=== PATIENT | male | born 1975 | race Caucasian/White ===

== ENCOUNTER 2016-09-28 06:43 | Emergency (ER) | payer MEDICAID, OTHER ==
[~2016-09-28 06:43] MED LIST: IBUP800T23 PO; ROBA750T3 PO
[2016-09-28 06:45] VITALS: BP 168/116; PULSE 57; RESP 16; TEMP 98.1; O2SAT 99
--- NOTE | 2016-09-28 06:59 | PD ---
HPI . muscle tightness and back pain since Monday Chief Complaint: Back/ Neck Pain or Injury Time Seen by Provider: 06:59 Travel History International Travel<30 days: No Contact w/Intl Traveler<30days: No Traveled to known affect area: No History of Present Illness HPI 41-year-old male with no significant past medical history other than tobaccoism here with complaints of muscle strain and back pain. Patient picked up a tree limb in his yard on Monday evening and says he felt a pull muscles. He's been trying to self treat at home with ibuprofen and Aleve, but he is not getting much relief. At rest his pain is rated 5/10, with movement 8/10. He denies any bowel or bladder dysfunction. No saddle anesthesia. He denies numbness or tingling. 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 Reported Meds & Prescriptions Reported Meds & Active Scripts Active Ibuprofen 800 Mg Tab 800 Mg PO TID Flexeril (Cyclobenzaprine HCl) 5 Mg Tab 5 Mg PO TID Review of Systems General / Constitutional: No: Fever Eyes: No: Visual changes HENT: No: Headaches Cardiovascular: No: Chest Pain or Discomfort Respiratory: No: Shortness of Breath Gastrointestinal: No: Abdominal Pain Genitourinary: No: Dysuria Musculoskeletal: Positive: Pain (back pain) Skin: No Rash Neurologic: No: Weakness Psychiatric: No: Depression Endocrine: No: Polydipsia Hematologic/Lymphatic: No: Easy Bruising Physical Exam Narrative GENERAL: AAO x 3, no acute distress, Well-nourished, well-developed patient. SKIN: Warm and dry. No visible rashes or bruising. HEAD: Normocephalic and atraumatic. EYES: No scleral icterus. No injection or drainage. ENT: No nasal drainage noted. Mucous membranes pink. Airway patent. NECK: Supple, trachea midline. No JVD. CARDIOVASCULAR: Regular rate and rhythm without murmurs, gallops, or rubs. RESPIRATORY: Breath sounds equal bilaterally. No accessory muscle use. No rhonchi or rales. GASTROINTESTINAL: Visual inspection normal EXTREMITIES: No cyanosis or edema. BACK: Nontender without obvious deformity. No CVA tenderness. Bilateral paraspinal tenderness in the lumbar area. Normal gait. PSYCH: AAO x 3, normal affect. Data Data Last Documented VS Vital Signs Date Time Temp Pulse Resp B/P Pulse Ox O2 Delivery O2 Flow Rate FiO2 09/28/16 06:45 98.1 57 16 168/116 99 MDM Medical Decision Making Medical Screen Exam Complete: Yes Emergency Medical Condition: Yes Medical Record Reviewed: Yes Differential Diagnosis lumbago, muscle strain, less likely spinal fracture Narrative Course 41-year-old male here with acute back pain after picking up a tree limb on Monday. Patient was seen and examined. He appears to have muscle strain in the paraspinal area of the lumbar spine. I discussed the treatment plan including use of muscle relaxers and anti- inflammatory. We discussed the side effects of muscle relaxers Patient was in agreement. bp recheck 141/87 Patient verbalized understanding of instructions, questions were answered, and thanked me for their care. I advised them if their condition worsens, please return to the nearest emergency room for further care. Diagnosis Primary Impression: Muscle strain Additional Impression: Lumbago Qualified Code: M54.5 - Acute midline low back pain without sciatica Patient Instructions: General Instructions Additional Instructions: Please return to emergency department if your symptoms return or worsen. Follow up with your primary care provider. Take medications as prescribed. Muscle relaxers can cause drowsiness. Do not drive, swim or operate heavy machinery while using these medications. Med/Other Pt SpecificInfo: Prescription(s) given Scripts Ibuprofen 800 Mg [id number] Mg PO TID #21 TAB Prov:Adeola Martinez MD 09/28/16 Cyclobenzaprine (Flexeril)5 Mg Tab5 Mg PO TID #21 TAB Prov:Adeola Martinez MD 09/28/16 Disposition: 01 DISCHARGE HOME Condition: Stable Miri Arechiga September 28, 2016 06:59
[2016-09-28] MEDS ORDERED: IBUP800T23 PO (07:03)
[2016-09-28] MEDS ORDERED: CYCL5TAB PO (07:03)
== END 2016-09-28 07:17 | disposition home or self-care (01) ==
LOC: NEPK 06:43
DX: M54.5 Low back pain (principal); S39.012A Strain of muscle, fascia and tendon of lower back, initial encounter; Z72.0 Tobacco use; X50.0XXA Overexertion from strenuous movement or load, initial encounter; Y93.H9 Activity, other involving exterior property and land maintenance, building and construction; Y92.017 Garden or yard in single-family (private) house as the place of occurrence of the external cause; Y99.8 Other external cause status
CPT/HCPCS: 99283

== ENCOUNTER 2016-11-26 16:15 | Emergency (ER) | payer MEDICAID ==
[~2016-11-26] VITALS: Ht 185.4 cm; Wt 79.0 kg
[~2016-11-26 16:15] MED LIST changes: +CYCL5TAB PO; -ROBA750T3 PO
[2016-11-26 16:16] VITALS: BP 162/95; PULSE 63; RESP 14; TEMP 98.2; O2SAT 99
--- NOTE | 2016-11-26 16:21 | PD ---
HPI . right hand pain x 2 weeks Chief Complaint: Pain: Acute or Chronic Time Seen by Provider: 16:21 Travel History International Travel<30 days: No Contact w/Intl Traveler<30days: No Traveled to known affect area: No History of Present Illness HPI 41-year-old male here with complaints of right wrist pain intermittently for the past 2 weeks. Patient says he started new job and has been using his hand a lot and every time he makes a twisting motion, he is experiencing right wrist and hand pain. The pain radiates into his right forearm. He rates the pain as 5/10. He denies any recent injury. He is requesting ibuprofen that he received during his last visit. He says that he's been taking 200 mg of ibuprofen 3 times a day, without much relief. 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 Reported Meds & Prescriptions Reported Meds & Active Scripts Active Ibuprofen 800 Mg Tab 800 Mg PO TID Review of Systems General / Constitutional: No: Fever Eyes: No: Visual changes HENT: No: Headaches Cardiovascular: No: Chest Pain or Discomfort Respiratory: No: Shortness of Breath Gastrointestinal: No: Abdominal Pain Genitourinary: No: Dysuria Musculoskeletal: Positive: Pain (right hand/wrist pain ) Skin: No Rash Neurologic: No: Weakness Psychiatric: No: Depression Endocrine: No: Polydipsia Hematologic/Lymphatic: No: Easy Bruising Physical Exam Narrative GENERAL: AAO x 3, no acute distress, Well-nourished, well-developed patient. SKIN: Warm and dry. No visible rashes or bruising. HEAD: Normocephalic and atraumatic. EYES: No scleral icterus. No injection or drainage. ENT: No nasal drainage noted. Mucous membranes pink. Airway patent. NECK: Supple, trachea midline. No JVD. CARDIOVASCULAR: Regular rate and rhythm without murmurs, gallops, or rubs. RESPIRATORY: Breath sounds equal bilaterally. No accessory muscle use. No rhonchi or rales. GASTROINTESTINAL: Abdomen soft, non-tender, nondistended. EXTREMITIES: No cyanosis or edema. right hand: no tenderness to distal radius and ulna, distal and ulnar pulse normal, digits move normally BACK: No obvious deformity. 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 Data Data Last Documented VS Vital Signs Date Time Temp Pulse Resp B/P Pulse Ox O2 Delivery O2 Flow Rate FiO2 11/26/16 16:16 98.2 63 14 162/95 99 Orders Bubba Bandage (11/26/16 16:26) MDM Medical Decision Making Medical Screen Exam Complete: Yes Emergency Medical Condition: Yes Medical Record Reviewed: Yes Differential Diagnosis Tendinitis, de Quervain's tenosynovitis, less likely fracture, less likely wrist sprain Narrative Course 41-year-old male here with complaints of right hand pain. He does not appear to have a fracture. I've explained to him that unfortunately I do not feel he needs imaging. He is in agreement. It seems that he has overused his hand and has a case of tendinitis. I recommend high-dose anti-inflammatories, rest, ice and compression. I discussed this with him. He is in agreement. I recommend follow-up with his primary care provider. Patient verbalized understanding of instructions, questions were answered, and thanked me for their care. I advised them if their condition worsens, please return to the nearest emergency room for further care. Diagnosis Primary Impression: Tendinitis of hand Patient Instructions: General Instructions Additional Instructions: Rest the affected area as much as possible. Ice this area for 15-20 minutes at a time. You can do this every hour or as much as tolerated. Keep this area compressed (bubba bandage) as tolerated. Elevate this area. Use ibuprofen as needed for pain and inflammation. Please return to emergency department if your symptoms return or worsen. Follow up with your primary care provider. Take medications as prescribed. Med/Other Pt SpecificInfo: Prescription(s) given Scripts Ibuprofen 800 Mg [id number] Mg PO TID #21 TAB Prov:Cristina Ferreira MD 11/26/16 Disposition: 01 DISCHARGE HOME Condition: Stable Miri Arechiga Nov 26, 2016 16:21
[2016-11-26] MEDS ORDERED: IBUP800T23 PO ×2 (16:25→16:39)
== END 2016-11-26 16:47 | disposition home or self-care (01) ==
LOC: NEPD 16:15
DX: M77.9 Enthesopathy, unspecified (principal)
CPT/HCPCS: 99283